=== PATIENT | female | born 1985 | race Caucasian/White ===

== ENCOUNTER 2019-06-10 14:42 | Observation (INO) | payer MEDICAID ==
[~2019-06-10] VITALS: Ht 149.9 cm; Wt 94.3 kg
[2019-06-10 15:50] LABS: BASOPHILS % 0.3 % (0.0-2.0); EOSINOPHILS % 0.5 % (0.0-5.0); HEMATOCRIT. 39.6 % (36.0-48.0); HEMOGLOBIN. 13.2 g/dL (12.0-16.0); LYMPHOCYTES % 19.6 % (20.0-50.0); MEAN CORPUSCULAR HEMOGLOBIN 28.6 pg (28.0-32.0); MEAN CORPUSCULAR VOLUME 85.7 fL (81.0-99.0); MONOCYTES % 8.5 % (2.0-8.0); NEUTROPHILS % 71.1 % (40.0-76.0); PLATELET 193 x1000/uL (130-400); RED BLOOD CELL COUNT 4.62 mill/uL (4.2-5.4); RED CELL DISTRIBUTION WIDTH 15.1 % (11.6-14.6)
[2019-06-10 15:53] LABS: CHLORIDE 111 mEq/L (98-107)
[2019-06-10 15:56] LABS: CLARITY URINE CLOUDY (CLEAR); COLOR URINE YELLOW (YELLOW); KETONES URINE NEGATIVE (NEGATIVE); LEUKOCYTE ESTERASE URINE TRACE (NEGATIVE); NITRITE URINE NEGATIVE (NEGATIVE); OCCULT BLOOD URINE TRACE (NEGATIVE); PROTEIN URINE NEGATIVE (NEGATIVE); SPECIFIC GRAVITY URINE 1.012 (1.005-1.030); UROBILINOGEN URINE 0.2 E.U./dL (0.2-1.0)
[2019-06-10 16:09] LABS: D-DIMER 3.42 mg/L FEU (<0.50); INR 0.9; PARTIAL THROMBOPLASTIN TIME 27.1 sec (23.4-31.0); PROTHROMBIN TIME 9.4 sec (9.6-11.0)
[2019-06-10] MEDS ORDERED: LACTATED RINGERS 1,000 ML IV SCH (16:45)
[2019-06-10] MEDS ORDERED: FERR325T6 MT (16:56)
[2019-06-10] MEDS ORDERED: PREN1TAB78 MT (16:56)
[2019-06-10] MEDS ORDERED: CEFAZOLIN 2,000 MG in DEXT 5% WATER 100 ML IV NR (17:00)
== END 2019-06-10 18:00 | disposition home or self-care (01) ==
LOC: 8 EST LDRP 14:42
PROVIDERS: ADMIT Obstetrics & Gynecology; ATTEND Obstetrics & Gynecology
DX: O26.893 Other specified pregnancy related conditions, third trimester (principal); R03.0 Elevated blood-pressure reading, without diagnosis of hypertension; Z3A.37 37 weeks gestation of pregnancy
CPT/HCPCS: 36415; 80053; 81003; 84550; 85025; 85379; 85384; 85610; 85730; 87086; 96365; 99281; G0378; J0690; J7060; 96360

== ENCOUNTER 2019-06-19 05:57 | Inpatient (IN) | payer MEDICAID ==
[~2019-06-19] VITALS: Ht 147.3 cm; Wt 95.3 kg
[~2019-06-19 05:57] MED LIST: FERR325T6 MT; PREN1TAB78 MT
[2019-06-19] MEDS ORDERED: METHYLERGONOVINE MALEATE 0.2 MG/ML IM PRN (06:45)
[2019-06-19] MEDS ORDERED: CARBOPROST TROMETHAMINE 250 MCG/ML AMPUL IM PRN (06:45)
[2019-06-19] MEDS ORDERED: LACTATED RINGERS 1,000 ML IV SCH (07:00)
[2019-06-19] MEDS ORDERED: GLYCOPYRROLATE 0.2 MG/ML 2ML VIAL ONE (07:17)
[2019-06-19] MEDS ORDERED: OXYTOCIN 10 UNITS/ML 1ML ONE ×2 (07:17→09:05)
[2019-06-19] MEDS ORDERED: MORPHINE SULFATE/PF 1MG/ML 10ML AMP ONE (07:17)
[2019-06-19] MEDS ORDERED: FENTANYL CITRATE/PF 50MCG/ML 2ML VIAL ONE (07:17)
[2019-06-19] MEDS ORDERED: EPHEDRINE SULFATE 50MG/ML VIAL ONE (07:17)
[2019-06-19] MEDS ORDERED: PHENYLEPHRINE HCL 10 MG/ML 1ML (IV VIAL) IV ONE (07:17)
[2019-06-19] MEDS ORDERED: METOCLOPRAMIDE HCL 10MG/2ML VIAL ONE (07:17)
[2019-06-19] MEDS ORDERED: ONDANSETRON HCL 4MG/2ML INJ ONE (07:18)
[2019-06-19] MEDS ORDERED: CEFAZOLIN SODIUM 1000MG/VIAL ONE (07:18)
[2019-06-19 07:23] LABS: CLARITY URINE CLEAR (CLEAR); COLOR URINE YELLOW (YELLOW); KETONES URINE NEGATIVE (NEGATIVE); LEUKOCYTE ESTERASE URINE TRACE (NEGATIVE); NITRITE URINE NEGATIVE (NEGATIVE); OCCULT BLOOD URINE 3+ (NEGATIVE); PROTEIN URINE TRACE (NEGATIVE); SPECIFIC GRAVITY URINE 1.008 (1.005-1.030); UROBILINOGEN URINE 0.2 E.U./dL (0.2-1.0)
[2019-06-19 07:25] LABS: BASOPHILS % 0.3 % (0.0-2.0); EOSINOPHILS % 1.9 % (0.0-5.0); HEMATOCRIT. 41.4 % (36.0-48.0); HEMOGLOBIN. 13.5 g/dL (12.0-16.0); LYMPHOCYTES % 30.3 % (20.0-50.0); MEAN CORPUSCULAR HEMOGLOBIN 27.7 pg (28.0-32.0); MEAN CORPUSCULAR VOLUME 85.2 fL (81.0-99.0); MONOCYTES % 8.5 % (2.0-8.0); PLATELET 197 x1000/uL (130-400); RED BLOOD CELL COUNT 4.86 mill/uL (4.2-5.4); RED CELL DISTRIBUTION WIDTH 15.1 % (11.6-14.6)
[2019-06-19 07:29] LABS: INR 0.9; PARTIAL THROMBOPLASTIN TIME 27.3 sec (23.4-31.0)
[2019-06-19] MEDS ORDERED: CITRIC ACID/SODIUM CITRATE SOLN 30ML UDC PO SCH (07:45)
[2019-06-19 07:58] LABS: *AMPHETAMINES SCREEN URINE NEGATIVE (NEGATIVE); *BARBITURATES SCREEN URINE NEGATIVE (NEGATIVE); *BENZODIAZEPINES SCREEN URINE NEGATIVE (NEGATIVE)
[2019-06-19 07:59] LABS: *COCAINE SCREEN URINE NEGATIVE (NEGATIVE); CANNABINOID URINE SCREEN NEGATIVE (NEGATIVE); METHADONE URINE SCREEN NEGATIVE (NEGATIVE); OPIATES URINE SCREEN NEGATIVE (NEGATIVE); PHENCYCLIDINE URINE SCREEN NEGATIVE (NEGATIVE)
[2019-06-19 08:01] LABS: HEPATITIS B SURFACE ANTIGEN NEGATIVE
[2019-06-19] MEDS ORDERED: ESMOLOL HCL 10MG/ML 10ML VIAL IV ONE (08:39)
[2019-06-19] MEDS ORDERED: KETOROLAC 60MG/2ML VIAL IM ONE (08:58)
[2019-06-19] MEDS ORDERED: DIPHENHYDRAMINE 50MG/ML VIAL ONE (08:58)
[2019-06-19] MEDS ORDERED: DIPHENHYDRAMINE 50MG/ML VIAL IV PRN (09:30)
[2019-06-19] MEDS ORDERED: BUTORPHANOL TARTRATE 2 MG/ML VIAL IV PRN (09:30)
[2019-06-19] MEDS ORDERED: NALOXONE HCL 0.4 MG/ML 1ML VIAL IV PRN (09:30)
[2019-06-19 11:45] VITALS: BP 132/84
[2019-06-19 12:15] VITALS: BP 128/75
[2019-06-19] MEDS: DEXT 5%/LR + PITOCIN 20UNITS/L 1,000 ML IV SCH ×2 (12:53→20:37)
[2019-06-19] MEDS: KETOROLAC 30MG/ML VIAL IV SCH ×2 (15:30→21:18)
[2019-06-19 16:00] VITALS: BP 122/76
[2019-06-19 20:25] VITALS: BP 124/78
[2019-06-20 05:00] VITALS: BP 125/66
[2019-06-20] MEDS ORDERED: KETOROLAC 30MG/ML VIAL IV SCH (05:15)
[2019-06-20] MEDS: DEXT 5%/LR + PITOCIN 20UNITS/L 1,000 ML IV SCH (05:17)
[2019-06-20] MEDS: KETOROLAC 30MG/ML VIAL IV SCH (05:45)
[2019-06-20] MEDS ORDERED: DEXT 5%/LR + PITOCIN 20UNITS/L 1,000 ML IV SCH ×2 (07:09→21:25)
[2019-06-20 07:15] VITALS: BP 119/59
[2019-06-20] MEDS ORDERED: HYDROCODONE/ACETAMINOPHEN 5/325MG TABLET PO PRN (07:15)
[2019-06-20] MEDS ORDERED: LANOLIN OINT 7GM TUBE TOP PRN (07:15)
[2019-06-20] MEDS ORDERED: IBUPROFEN 400MG TABLET PO PRN ×2 (07:15→21:30)
[2019-06-20] MEDS ORDERED: BISACODYL 10MG SUPP PR PRN ×2 (07:15→21:30)
[2019-06-20] MEDS ORDERED: RHO(D) IMMUNE GLOBULIN 300 MCG/SYR IM PRN ×2 (07:15→21:30)
[2019-06-20] MEDS ORDERED: ONDANSETRON HCL 4MG/2ML INJ IV PRN (07:15)
[2019-06-20 08:57] LABS: BASOPHILS % 0.4 % (0.0-2.0); EOSINOPHILS % 0.5 % (0.0-5.0); HEMATOCRIT. 35.8 % (36.0-48.0); HEMOGLOBIN. 11.8 g/dL (12.0-16.0); LYMPHOCYTES % 14.9 % (20.0-50.0); MEAN CORPUSCULAR HEMOGLOBIN 28.3 pg (28.0-32.0); MEAN CORPUSCULAR VOLUME 85.6 fL (81.0-99.0); MEAN PLATELET VOLUME 9.7 fl (7.4-10.4); MONOCYTES % 5.4 % (2.0-8.0); NEUTROPHILS % 78.8 % (40.0-76.0); PLATELET 180 x1000/uL (130-400); RED BLOOD CELL COUNT 4.18 mill/uL (4.2-5.4); RED CELL DISTRIBUTION WIDTH 15.2 % (11.6-14.6)
[2019-06-20] MEDS: PRENATAL VIT/FE FUMARATE/FA TABLET PO SCH (14:12)
[2019-06-20] MEDS: ACETAMINOPHEN WITH CODEINE 300/30MG TABLET PO PRN ×2 (14:13→21:25)
[2019-06-20 15:00] VITALS: BP 133/76
[2019-06-20 20:20] VITALS: BP 138/90
[2019-06-20] MEDS: DOCUSATE SODIUM 100MG CAPSULE PO SCH (21:24)
[2019-06-20] MEDS ORDERED: HYDROMORPHONE HCL/PF 2MG/ML CPJ IM PRN (21:30)
[2019-06-21] MEDS: IBUPROFEN 800MG TABLET PO PRN ×3 (02:40→17:56)
[2019-06-21 04:00] VITALS: BP 145/84
[2019-06-21 07:49] VITALS: BP 131/85
[2019-06-21] MEDS: PRENATAL VIT/FE FUMARATE/FA TABLET PO SCH (09:30)
[2019-06-21 15:46] VITALS: BP 128/82
[2019-06-21 20:44] VITALS: BP 133/79
[2019-06-21] MEDS: DOCUSATE SODIUM 100MG CAPSULE PO SCH (21:00)
[2019-06-22 03:46] VITALS: BP 136/77
[2019-06-22] MEDS ORDERED: IBUP-2030 MT (06:54)
[2019-06-22 08:06] VITALS: BP 134/73
[2019-06-22] MEDS: PRENATAL VIT/FE FUMARATE/FA TABLET PO SCH (09:08)
[2019-06-22] MEDS: IBUPROFEN 800MG TABLET PO PRN (09:08)
== END 2019-06-22 12:30 | disposition home or self-care (01) | DRG 540 ==
LOC: OBSVTOIN 05:57 → 8 EST LDRP 05:57 → 8EST 11:45
PROVIDERS: ADMIT Obstetrics & Gynecology; ATTEND Obstetrics & Gynecology
PROC: 10D00Z1 Extraction of Products of Conception, Low, Open Approach (ICD-10-PCS; principal; 2019-06-19)
PROC: 0UB70ZZ Excision of Bilateral Fallopian Tubes, Open Approach (ICD-10-PCS; 2019-06-19)
DX: O34.211 Maternal care for low transverse scar from previous cesarean delivery (principal); D62 Acute posthemorrhagic anemia; O99.214 Obesity complicating childbirth; O99.03 Anemia complicating the puerperium; O32.8XX0 Maternal care for other malpresentation of fetus, not applicable or unspecified; E66.9 Obesity, unspecified; O69.81X0 Labor and delivery complicated by cord around neck, without compression, not applicable or unspecified; Z37.0 Single live birth; Z82.49 Family history of ischemic heart disease and other diseases of the circulatory system; Z3A.38 38 weeks gestation of pregnancy; Z30.2 Encounter for sterilization; Z83.3 Family history of diabetes mellitus
CPT/HCPCS: 36415; 80305; 81003; 86592; 86703; 86762; 86850; 86900; 86920; 87340; 88302; 88307; 99281; J0690; J1200; J1885; J2274; J2370; J2405; J2590; J2765; J3010; J3490; J7120; A4315